=== PATIENT | female | born 1980 | race Caucasian/White ===

== ENCOUNTER 2019-06-11 14:15 | Emergency (ER) | payer OTHER, SELFPAY ==
[2019-06-11 14:32] VITALS: BP 135/74; PULSE 90; RESP 16; TEMP 36.6; O2SAT 100
--- NOTE | 2019-06-11 14:36 | ED.URI ---
HPI - URI/Sore Throat General Chief Complaint: Upper Respiratory Infection Stated Complaint: cough/congestion/headache/ears clogged Time Seen by Provider: 06/11/19 14:36 Source: patient and RN notes reviewed History of Present Illness HPI Narrative: Patient is a 39-year-old female that presents to the urgent care with complaints of cough, congestion, bilateral ear pain and headache for 2 weeks. Patient states that she has also had an intermittent sore throat that started 2-1/2 weeks ago. Patient states that she has been taking 4 days of amoxicillin that she had leftover from another infection. Patient denies any fever, nausea, vomiting. No other acute complaints. No acute distress noted. Patient read the plan of care. Related Data Home Medications Medication Instructions Recorded Confirmed amlodipine 06/11/19 hydrocodone-ibuprofen tablet 06/11/19 losartan 06/11/19 ondansetron HCl 06/11/19 Allergies Allergy/AdvReac Type Severity Reaction Status Date / Time Sulfa (Sulfonamide Allergy Mild Other Verified 06/11/19 14:31 Antibiotics) Review of Systems Review of Systems: Narrative: CONSTITUTIONAL: Denies fever, chills, or sweats. EYES: Denies visual changes, redness, or discharge. ENT: Reports of congestion, sore throat, bilateral otalgia, rhinorrhea CARDIOVASCULAR: Denies chest pain, palpitations, or edema. RESPIRATORY: Reports of cough with intermittent dyspnea during coughing fits GASTROINTESTINAL: Denies abdominal pain, nausea, vomiting, or diarrhea. GENITOURINARY: Denies dysuria or hematuria. SKIN: Denies rash or itching. MUSCULOSKELETAL: Denies back pain, joint pain, or myalgia. NEUROLOGIC: Reports of intermittent headaches All other systems reviewed are negative, except as documented in HPI. PMFSH Comments At the time of my signature, I reviewed and agree with the nursing past medical, surgical, social, and family history. There is no relevant family history pertinent to the patient complaint. Exam Narrative: Exam Narrative: GENERAL: This is a well-nourished, well-developed patient, appears slightly fatigued HEAD: normocephalic, atraumatic. EYES: PERRL. Sclera clear/white. Vision is grossly intact. EARS: External ears normal, auditory canals clear and without drainage, TMs normal without perforation. Hearing grossly intact. NOSE: External nose normal with no obvious nasal discharge, mild bilateral erythemic nares with clear to yellow rhinorrhea THROAT: Mucous membranes moist, posterior pharynx clear. Mild postnasal drainage NECK: Neck supple, non-tender without lymphadenopathy CARDIOVASCULAR: Regular rate and rhythm without murmurs, gallops, or rubs. RESPIRATORY: Clear to auscultation. Breath sounds equal bilaterally. No wheezes, rales, or rhonchi. SKIN: warm, intact with no suspicious lesions or rash, good texture and turgor. NEURO: awake, alert, and oriented to person, place and time. There were no obvious focal neurologic abnormalities. EXTREMITIES: No clubbing, cyanosis, or edema. Course Vital Signs Vital signs: Vital Signs Temperature 97.9 F 06/11/19 14:32 Pulse Rate 90 06/11/19 14:32 Respiratory Rate 16 06/11/19 14:32 Blood Pressure 135/74 06/11/19 14:32 Pulse Oximetry 100 06/11/19 14:32 Temperature 97.9 F 06/11/19 14:32 Pulse Rate 90 06/11/19 14:32 Respiratory Rate 16 06/11/19 14:32 Blood Pressure 135/74 06/11/19 14:32 Pulse Oximetry 100 06/11/19 14:32 Reviewed MDM - URI/Sore Throat MDM Narrative Medical decision making narrative: Advised the patient to complete steroid regimen as prescribed. Use Claritin and Flonase as directed. Make sure to eat and drink with medication. Stop taking amoxicillin. Increase fluids and rest. Use humidifier at night. Use Tylenol/ibuprofen as needed for fever and body aches. Follow-up with PCP within 2 to 5 days if worsening symptoms or failure to improve. Differential Diagnosis Differential diagnosis: Likely upper re
== END 2019-06-11 15:01 | disposition home or self-care (01) ==
PROVIDERS: Emergency Provider Nurse Practitioner Family
DX: J02.9 Acute pharyngitis, unspecified (principal); I10 Essential (primary) hypertension
CPT/HCPCS: 99203; G0463

== ENCOUNTER 2023-01-27 16:34 | Emergency (ER) | payer OTHER, SELFPAY ==
[2023-01-27 16:47] VITALS: BP 142/76; PULSE 100; RESP 16; TEMP 36.4; O2SAT 100
--- NOTE | 2023-01-27 16:50 | ED.URI ---
HPI - URI/Sore Throat General Chief Complaint: Upper Respiratory Infection Stated Complaint: Sore Throat Time Seen by Provider: 01/27/23 16:53 Source: patient and RN notes reviewed Mode of arrival: ambulatory Limitations: no limitations History of Present Illness HPI Narrative: 42-year-old female presents with concern for cough, sore throat, nasal congestion, postnasal drainage. She reports her son was diagnosed with strep throat recently. She denies fever, aches, chills, sweats. She has not taken any medications for her symptoms. MD elicited complaint: cough and sore throat Related Data Home Medications Medication Instructions Recorded Confirmed losartan 100 mg tablet 100 mg PO DAILY 06/11/19 01/27/23 alprazolam 0.5 mg tablet 0.25 mg PO PRN PRN Anxiety 01/27/23 01/27/23 amlodipine 10 mg tablet 10 mg PO DAILY 01/27/23 01/27/23 hydrochlorothiazide 12.5 mg capsule 12.5 mg PO DAILY 01/27/23 01/27/23 norethindrone (contraceptive) 0.35 0.35 mg PO DAILY 01/27/23 01/27/23 mg tablet Allergies Allergy/AdvReac Type Severity Reaction Status Date / Time Sulfa (Sulfonamide Allergy Mild Other Verified 01/27/23 16:46 Antibiotics) Review of Systems Review of Systems: CONSTITUTIONAL: Denies malaise, chills, sweats, or fever. EYES: Denies visual changes, redness, or discharge. ENT: Reports rhinorrhea, congestion, and sore throat. CARDIOVASCULAR: Denies chest pain, palpitations, or edema. RESPIRATORY: Reports cough. Denies dyspnea. GASTROINTESTINAL: Denies abdominal pain, nausea, vomiting, diarrhea SKIN: Denies rash or itching. MUSCULOSKELETAL: Denies myalgia. NEUROLOGIC: Denies headache. All systems reviewed & are unremarkable except as noted in HPI and below PMFSH Comments At time of signature, agree with nursing past medical, surgical, social and family history. There is no relevant family history pertinent to the presenting complaint Exam Narrative: GENERAL: Well-appearing, well-nourished, and in no acute distress. HEAD: Normocephalic EYES: PERRLA, conjunctivae clear ENT: Nares clear, turbinates edematous and erythematous. Mucous membranes moist. TM pearly montgomery with sharp light reflex bilaterally; no tragal tenderness. Oropharynx not erythematous without lesions. Tonsils not enlarged and without exudate, no drooling, no hoarseness, no trismus, uvula midline. NECK: Supple. No lymphadenopathy CHEST: Clear to auscultation, breath sounds equal. No wheezing, rhonchi, rales, or stridor. No respiratory distress, speaks in full sentences. HEART: Regular rate and rhythm. No murmur heard. SKIN: Warm, dry, no rash. NEURO: Alert and oriented x3. PSYCH: Normal mood and affect Course Course Emergency Course: Patient is aware of diagnosis, understands and agrees to treatment plan. Anticipatory guidance given. Patient agrees to follow-up as directed and is aware of reasons to seek care at the emergency department. Portions of this record may have been created with voice recognition software Level of Care: Express Care Visit Vital Signs Vital signs: Vital Signs Temperature 97.6 F 01/27/23 16:47 Pulse Rate 100 01/27/23 16:47 Respiratory Rate 16 01/27/23 16:47 Blood Pressure 142/76 H 01/27/23 16:47 Pulse Oximetry 100 01/27/23 16:47 Temperature 97.6 F 01/27/23 16:47 Pulse Rate 100 01/27/23 16:47 Respiratory Rate 16 01/27/23 16:47 Blood Pressure 142/76 H 01/27/23 16:47 Pulse Oximetry 100 01/27/23 16:47 Reviewed. MDM - URI/Sore Throat MDM Narrative Medical decision making narrative: Differential diagnosis considered: Aaron virus, strep pharyngitis, allergic rhinitis, upper respiratory tract infection, sinusitis, rhinosinusitis, nasopharyngitis. viral pharyngitis, otitis media, otitis externa, pneumonia, bronchitis, viral cough syndrome, viral syndrome, and influenza. Exam findings show no acute concerns or changes; patient is non-toxic appearing and is in no distress. Patient
[2023-01-27 16:57] VITALS: BP 142/76; PULSE 100; RESP 16; TEMP 36.4; O2SAT 100
== END 2023-01-27 17:05 | disposition home or self-care (01) ==
PROVIDERS: Emergency Provider Nurse Practitioner
DX: J06.9 Acute upper respiratory infection, unspecified (principal); I10 Essential (primary) hypertension; E03.9 Hypothyroidism, unspecified
CPT/HCPCS: 87081; 87880; 99203; G0463

== ENCOUNTER 2023-05-24 13:33 | Emergency (ER) | payer OTHER, SELFPAY ==
[2023-05-24 13:46] VITALS: BP 169/90; PULSE 95; RESP 16; TEMP 36.7; O2SAT 100
--- NOTE | 2023-05-24 14:05 | ED.URI ---
HPI - URI/Sore Throat General Chief Complaint: Upper Respiratory Infection Stated Complaint: Sore throat Time Seen by Provider: 05/24/23 13:56 Source: patient and RN notes reviewed Mode of arrival: ambulatory Limitations: no limitations History of Present Illness HPI Narrative: Patient presents today complaining of sore throat and headache that was present when she woke up this morning. She has tried no medication for symptoms prior to arrival. Son was diagnosed with strep yesterday. Currently rates her pain 04/07. Related Data Home Medications Medication Instructions Recorded Confirmed losartan 100 mg tablet 100 mg PO DAILY 06/11/19 05/24/23 alprazolam 0.5 mg tablet 0.25 mg PO PRN PRN Anxiety 01/27/23 05/24/23 amlodipine 10 mg tablet 10 mg PO DAILY 01/27/23 05/24/23 hydrochlorothiazide 12.5 mg capsule 12.5 mg PO DAILY 01/27/23 05/24/23 norethindrone (contraceptive) 0.35 0.35 mg PO DAILY 01/27/23 05/24/23 mg tablet Allergies Allergy/AdvReac Type Severity Reaction Status Date / Time Sulfa (Sulfonamide Allergy Mild Other Verified 05/24/23 13:39 Antibiotics) Review of Systems Review of Systems: CONSTITUTIONAL: Denies body aches, fever, chills, or sweats. EYES: Denies visual changes, redness, or discharge. ENT: Denies rhinorrhea, congestion, or otalgia.+ sore throat CARDIOVASCULAR: Denies chest pain, palpitations, or edema. RESPIRATORY: Denies cough or dyspnea. GASTROINTESTINAL: Denies abdominal pain, nausea, vomiting, or diarrhea. GENITOURINARY: Denies dysuria or hematuria. SKIN: Denies rash, itching, or wounds. MUSCULOSKELETAL: Denies back pain, joint pain, or myalgia. NEUROLOGIC: Denies numbness, tingling, or weakness.+ headache PSYCH: Denies depression or anxiety. PMFSH Comments At time of signature, I have reviewed and agree with nursing past medical, surgical, social and family history unless otherwise noted. Please see nursing chart for further information. There is no relevant family history pertinent to the presenting complaint Exam Narrative: GENERAL: Mildly ill-appearing, well-nourished, and in no acute distress. HEAD: Normocephalic, atraumatic. EYES: EOMI. No redness or drainage. Conjunctivae normal. ENT: Mucous membranes pink and moist. Nares clear. No rhinorrhea. TMs normal bilaterally. Throat erythematous and mildly edematous without exudate. Uvula midline. NECK: Normal AROM. Supple. No lymphadenopathy. CHEST: No respiratory distress. Clear to auscultation. HEART: Regular rate and rhythm. No murmur appreciated. EXTREMITIES: Normal range of motion. No edema. SKIN: Warm, dry, no rash. Capillary refill normal. Normal skin turgor. NEURO: No focal deficits. Alert and oriented x3. Gait steady. PSYCH: Normal affect. No signs of depression or anxiety. Course Course Level of Care: Express Care Visit Vital Signs Vital signs: Vital Signs Temperature 98.0 F 05/24/23 13:46 Pulse Rate 95 05/24/23 13:46 Respiratory Rate 16 05/24/23 13:46 Blood Pressure 169/90 H 05/24/23 13:46 Pulse Oximetry 100 05/24/23 13:46 Oxygen Delivery Room Air 05/24/23 13:46 Temperature 98.0 F 05/24/23 13:46 Pulse Rate 95 05/24/23 13:46 Respiratory Rate 16 05/24/23 13:46 Blood Pressure 169/90 H 05/24/23 13:46 Pulse Oximetry 100 05/24/23 13:46 Oxygen Delivery Room Air 05/24/23 13:46 Reviewed MDM - URI/Sore Throat MDM Narrative Medical decision making narrative: Rapid strep negative. Culture pending. Symptoms likely viral. Discussed [id number] medication use and duration of illness. Anticipatory guidance given. Differential Diagnosis Differential diagnosis: Likely upper respiratory infection, pharyngitis and other (Strep throat) Lab Data Attestation: I reviewed the patient's lab results. Labs: Strep Screen Presumptive Negative *(Reference Range: Negative)* Critical Care Time Cr
== END 2023-05-24 14:11 | disposition home or self-care (01) ==
PROVIDERS: Emergency Provider Nurse Practitioner
DX: J02.0 Streptococcal pharyngitis (principal); B95.0 Streptococcus, group A, as the cause of diseases classified elsewhere; I10 Essential (primary) hypertension; E03.9 Hypothyroidism, unspecified
CPT/HCPCS: 87081; 87880; 99213; G0463

== ENCOUNTER 2024-03-27 15:54 | Emergency (ER) | payer OTHER, SELFPAY ==
[2024-03-27 16:01] VITALS: BP 166/89; PULSE 99; RESP 18; TEMP 37.3; O2SAT 100
[2024-03-27 16:15] LABS: EDSTREPNEGPOS1 Negative (Negative)
--- NOTE | 2024-03-27 16:57 | ED_ITS ---
HPI - URI/Sore Throat General Chief Complaint: Upper Respiratory Infection Stated Complaint: poss strep throat Time Seen by Provider: 03/27/24 16:40 Source: patient, RN notes reviewed and old records reviewed Mode of arrival: ambulatory Limitations: no limitations History of Present Illness HPI Narrative: 44 year old female presents to [facility] care with complaints of one week duration of sore throat, nasal congestion with yellow-green nasal drainage. Patient reports that she took 2 days worth of Amoxicillin last week.Patient reports that she has sinus pressure and some frontal headache discomfort, denies any known fevers, chills or sweats or any body aches. MD elicited complaint: sore throat, rhinorrhea and nasal congestion Pertinent past history: other (vapes) Onset (ago): week(s) (1) Consistency: constant Severity: moderate Able to tolerate fluids by mouth: Yes Treatments prior to arrival: other (took 2 days of left over Amoxicillin) Related Data Home Medications ?Medication ?Instructions ?Recorded ?Confirmed ?Last Taken ?Type losartan 100 mg tablet 100 mg PO DAILY 06/11/19 05/24/23 Unknown History amlodipine 10 mg tablet 10 mg PO DAILY 01/27/23 05/24/23 Unknown History hydrochlorothiazide 12.5 mg capsule 12.5 mg PO DAILY 01/27/23 05/24/23 Unknown History norethindrone (contraceptive) 0.35 0.35 mg PO DAILY 01/27/23 05/24/23 Unknown History mg tablet Allergies Allergy/AdvReac Type Severity Reaction Status Date / Time Sulfa (Sulfonamide Allergy Mild Other Verified 03/27/24 16:08 Antibiotics) Review of Systems Review of Systems: CONSTITUTIONAL: Reports malaise, no chills, sweats, or known fever. EYES: Denies visual changes, redness, or discharge. ENT: Reports rhinorrhea, congestion, sinus pain,no otalgia and positive for sore throat. CARDIOVASCULAR: Denies chest pain, palpitations, or edema. RESPIRATORY: Reports no cough.? Denies dyspnea. GASTROINTESTINAL: Denies abdominal pain, nausea, vomiting, diarrhea SKIN: Denies rash or itching. MUSCULOSKELETAL: Denies myalgia. NEUROLOGIC: frontal headache. All systems reviewed & are unremarkable except as noted in HPI and below PMFSH Past Medical History Medical History (Updated 03/31/24 @ 07:25 by Natalie cMmanus NP) Chronic back pain Ectopic required surgery Hx of migraines Hypertension Social History Social History (Updated 03/27/24 @ 17:00 by Natalie Mcmanus NP) Smoking status: Current every day smoker Tobacco type: e-cigarettes/vaping Comments At time of signature, agree with nursing past medical, surgical, social and family history. There is no relevant family history pertinent to the presenting complaint Exam Narrative: GENERAL: Well-appearing, well-nourished, and in no acute distress. HEAD: Normocephalic EYES: PERRLA, conjunctivae clear ENT: Nares clear, turbinates edematous and erythematous, clear discharge. Mucous membranes moist. TM pearly montgomery with dull light reflex bilaterally; no tragal tenderness. Oropharynx erythematous without lesions. Tonsils red enlarged and throat without exudate, no drooling, no hoarseness, no trismus, uvula midline.post nasal discharge NECK: Supple. No lymphadenopathy CHEST: Clear to auscultation, breath sounds equal. No wheezing, rhonchi, rales, or stridor. No respiratory distress, speaks in full sentences.no cough noted SAO2 100% on room air HEART: Regular rate and rhythm. No murmur heard. SKIN: Warm, dry, no rash. NEURO: Alert and oriented x3. PSYCH: Normal mood and affect Course Course Emergency Course: Patient is aware of diagnosis, understands and agrees to treatment plan.? Anticipatory guidance given.? Patient agrees to follow-up as directed and is aware of reasons to seek care at the emergency department. Portions of this record may have been created with voice recognition software Level of Care: Express Care Visit Vital Signs Vital signs: Vital Signs Temperature 37.3 C 03/27/24 16:01 Pulse Rate 99 03/27/24 16:01 Respiratory Rate 18 03/27/24 16:01 Blood Pressure 166/89 H 03/27/24 16:01 Pulse Oximetry 100 03/27/24 16:01 Oxygen Delivery Room Air 03/27/24 16:01 Temperature 37.3 C 03/27/24 16:01 Pulse Rate 99 03/27/24 16:01 Respiratory Rate 18 03/27/24 16:01 Blood Pressure 166/89 H 03/27/24 16:01 Pulse Oximetry 100 03/27/24 16:01 Oxygen Delivery Room Air 03/27/24 16:01 Reviewed MDM - URI/Sore Throat MDM Narrative Medical decision making narrative: Differential diagnosis considered: Aaron virus, strep pharyngitis, allergic rhinitis, upper respiratory tract infection, sinusitis, rhinosinusitis, nasopharyngitis. viral pharyngitis, otitis media, otitis externa, pneumonia, bronchitis, viral cough syndrome, viral syndrome, and influenza.? Exam findings show no acute concerns or changes; patient is non-toxic appearing and is in no distress.? Patient is appropriate for outpatient treatment and follow-up. Differential Diagnosis Differential diagnosis: Likely upper respiratory infection, sinusitis, viral infection, pharyngitis and other (strep pharyngitis, acute pharyngitis) Medical Records Attestation: I reviewed the patient's medical records. Lab Data Attestation: I reviewed the patient's lab results. Lab results narrative: strep screen negative, culture sent Labs: Lab Results 03/27/24 Range/Units 16:13 POC Grp A Strep Screen Negative (Negative) Critical Care Time Critical Care Time Critical Care Time: No Discharge Plan Discharge Clinical Impression: Acute pharyngitis Qualifiers: Pharyngitis/tonsillitis etiology: unspecified etiology Qualified Code(s): J02.9 - Acute pharyngitis, unspecified Patient Disposition: Home, Self-Care Condition: Stable Instructions: Pharyngitis (ED) Additional Instructions: . Take the entire course of antibiotics. Throw away your current toothbrush and begin using a new toothbrush in 48 hours in order to prevent re-infection. Sanitize all reusable water bottles Zyrtec Claritin or Silvia daily . Do not share items with others. Salt water gargles may alleviate some of the throat discomfort. You can take Tylenol or ibuprofen per the package instructions for pain/fever. Medrol Dosepak take as prescribed If your symptoms persist, change or worsen significantly before you can contact your personal physician then please, without delay, go to the emergency department for further evaluation. Follow-up with PCP in 7-10 days or sooner if needed Follow up with PCP soon in regards to your blood pressure which is elevated above threshold for referral. Blood pressure above 120/80 may indicate pre- hypertension. Patient Language: Estonian Prescriptions: New amoxicillin 500 mg capsule 500 mg PO Q8H Qty: 30 0RF methylprednisolone [Medrol (Xavier)] 4 mg tablets,dose pack See Rx Instructions .ROUTE .COMPLEX Qty: 21 0RF Rx Instructions: orally per package directions No Action losartan 100 mg tablet 100 mg PO DAILY amlodipine 10 mg tablet 10 mg PO DAILY hydrochlorothiazide 12.5 mg capsule 12.5 mg PO DAILY norethindrone (contraceptive) 0.35 mg tablet 0.35 mg PO DAILY Follow-up/Referrals: Tanya,Cynthia Newby MD [Primary Care Provider] - Time of Disposition: 17:04 Quality [place] Coma Scale Eyes: Open Verbal: Oriented and Alert Motor: Follows Commands [place] Coma Total Score: 15
== END 2024-03-27 17:08 | disposition home or self-care (01) ==
PROVIDERS: Emergency Provider Registered Nurse; PCP Internal Medicine
DX: J02.9 Acute pharyngitis, unspecified (principal); F17.290 Nicotine dependence, other tobacco product, uncomplicated; I10 Essential (primary) hypertension
CPT/HCPCS: 87081; 87880; 99213; G0463

== ENCOUNTER 2024-05-27 22:57 | Emergency (ER) | payer OTHER, SELFPAY ==
[2024-05-27 22:59] VITALS: BP 172/82; PULSE 100; RESP 17; TEMP 36.3; O2SAT 100
[2024-05-28 00:28] VITALS: BP 145/95; PULSE 83; RESP 14; O2SAT 98
--- NOTE | 2024-05-28 01:46 | ED.GENADULT ---
HPI - General Adult General Chief complaint: Upper Respiratory Infection Stated complaint: thick mucous since decemeber Time Seen by Provider: 05/28/24 01:37 History of Present Illness HPI narrative: Patient is a 44-year-old female who presents emergency department this evening concerned of a sinus infection. Patient states that a few weeks ago she was treated for a sinus infection with amoxicillin for 10 days and her symptoms did improve. Patient states that within the last couple of days she has noticed that her symptoms are back again, stating that she has a lot of nasal mucus and some postnasal drip, denies any cough or URI symptoms. Denies any fevers or chills at home. Patient is here requesting another course of antibiotics. No additional symptoms or concerns at this time. Related Data Home Medications ?Medication ?Instructions ?Recorded ?Confirmed ?Last Taken ?Type losartan 100 mg tablet 100 mg PO DAILY 06/11/19 05/24/23 Unknown History amlodipine 10 mg tablet 10 mg PO DAILY 01/27/23 05/24/23 Unknown History hydrochlorothiazide 12.5 mg capsule 12.5 mg PO DAILY 01/27/23 05/24/23 Unknown History norethindrone (contraceptive) 0.35 0.35 mg PO DAILY 01/27/23 05/24/23 Unknown History mg tablet Allergies Allergy/AdvReac Type Severity Reaction Status Date / Time Sulfa (Sulfonamide Allergy Mild Other Verified 05/27/24 23:05 Antibiotics) Review of Systems Review of Systems: All systems are reviewed and are negative unless stated otherwise in the HPI. [facility] Past Medical History Medical History Chronic back pain Ectopic required surgery Hx of migraines Hypertension Social History Social History Smoking status: Current every day smoker Tobacco type: e-cigarettes/vaping Exam Narrative: General: Alert, awake, afebrile, in no acute distress. HEENT: PERRL, no rhinorrhea, no post nasal drip, oropharynx clear, clear tympanic membranes bilaterally. Neck: Trachea midline, no JVD, no lymphadenopathy. Cardiovascular: Regular rate and rhythm, no murmurs, rubs or gallops, no peripheral edema. Respiratory: Clear to auscultation bilaterally, no tachypnea, no wheezing, no rhonchi, no rubs, no respiratory distress. Abdomen: Soft, nontender, nondistended, no rebound, no guarding, no peritoneal signs. Musculoskeletal: No joint swelling or deformity, normal muscle tone. Skin: No rashes or petechia, no signs of infection. Psychiatric: Alert and oriented, normal behavior and judgment for situation. Neurological: Alert and oriented to person, place, and time. Follows all commands. No focal deficits, speech is clear and fluent. Course Vital Signs Vital signs: Vital Signs Temperature 97.4 F L 05/27/24 22:59 Pulse Rate 100 05/27/24 22:59 Respiratory Rate 17 05/27/24 22:59 Blood Pressure 172/82 H 05/27/24 22:59 Pulse Oximetry 100 05/27/24 22:59 Oxygen Delivery Room Air 05/27/24 22:59 Temperature 97.4 F L 05/27/24 22:59 Pulse Rate 83 05/28/24 00:28 Respiratory Rate 14 05/28/24 00:28 Blood Pressure 145/95 H 05/28/24 00:28 Pulse Oximetry 98 05/28/24 00:28 Oxygen Delivery Room Air 05/27/24 22:59 Medical Decision Making MDM Narrative Medical decision making narrative: The patient was evaluated by myself in the emergency department. History is obtained from patient who is an independent historian and physical exam was performed. External medical records were reviewed at this time. Patient was administered her 1st dose of Augmentin in the emergency department and informed the script will be sent to her pharmacy to take as prescribed. Differential diagnosis considerations include acute viral syndrome, sinusitis, otitis media. Comorbidities impacting this visit include none. I have evaluated and discussed social determinants of health with the patient that could potentially impact subsequent diagnosis and treatment plans. On repeat assessment of the patient, reevaluation revealed that the patient is doing well and is in no acute distress. Patient symptoms have remained stable since she arrived to our emergency department. Repeat vital signs were all reviewed and noted to be stable. Differential diagnosis and treatment plan were discussed with the patient at bedside. Patient agrees with discussion and after shared medical decision making agrees with discharge. All questions were answered to the patient's satisfaction. Patient will follow up with her PCP in 3-5 days. Patient was provided with strict return precautions and instructed to return to the emergency department if any new or worsening symptoms develop. The patient was discharged in stable condition. Vital Signs Vital Signs: Vital Signs Temperature 97.4 F L 05/27/24 22:59 Pulse Rate 100 05/27/24 22:59 Respiratory Rate 17 05/27/24 22:59 Blood Pressure 172/82 H 05/27/24 22:59 Pulse Oximetry 100 05/27/24 22:59 Oxygen Delivery Room Air 05/27/24 22:59 Temperature 97.4 F L 05/27/24 22:59 Pulse Rate 83 05/28/24 00:28 Respiratory Rate 14 05/28/24 00:28 Blood Pressure 145/95 H 05/28/24 00:28 Pulse Oximetry 98 05/28/24 00:28 Oxygen Delivery Room Air 05/27/24 22:59 Discharge Plan Discharge Clinical Impression: Sinusitis Patient Disposition: Home, Self-Care Condition: Stable Instructions: Antibiotic Form, Sinusitis (ED) Additional Instructions: Please follow-up with your family doctor within the next 3-5 days. Take the prescribed antibiotic as instructed. Return to the ED if any new or worsening symptoms develop. Patient Language: Eritrean Prescriptions: New amoxicillin-pot clavulanate 875-125 mg tablet 1 tablet PO Q12H 10 Days Qty: 20 0RF No Action amoxicillin 500 mg capsule 500 mg PO Q8H Qty: 30 0RF methylprednisolone [Medrol (Xavier)] 4 mg tablets,dose pack See Rx Instructions .ROUTE .COMPLEX Qty: 21 0RF Rx Instructions: orally per package directions losartan 100 mg tablet 100 mg PO DAILY amlodipine 10 mg tablet 10 mg PO DAILY hydrochlorothiazide 12.5 mg capsule 12.5 mg PO DAILY norethindrone (contraceptive) 0.35 mg tablet 0.35 mg PO DAILY Follow-up/Referrals: Tanya,Cynthia Newby MD [Primary Care Provider] - 3 Days Time of Disposition: 01:46
[2024-05-28 01:51] VITALS: BP 148/99; PULSE 78; RESP 17; O2SAT 98
[2024-05-28] MEDS: AMOXICILLIN/CLAVULANATE K 875-125 MG TAB 1 TABLET PO (01:51)
[2024-05-28 01:57] VITALS: O2SAT 98
== END 2024-05-28 01:59 | disposition home or self-care (01) ==
PROVIDERS: Emergency Provider Emergency Medicine; PCP Internal Medicine
DX: J32.9 Chronic sinusitis, unspecified (principal); I10 Essential (primary) hypertension; F17.290 Nicotine dependence, other tobacco product, uncomplicated; Z79.899 Other long term (current) drug therapy
CPT/HCPCS: 99283; A9270

== ENCOUNTER 2024-08-17 15:50 | Emergency (ER) | payer OTHER, SELFPAY ==
--- OUTSIDE RECORDS SUMMARY | 2024-08-17 15:52 | XMS_ITS | Encounter Summary ---
Author Organization [facility] Address [address] [place] [address] Care Team Providers Care Rug Dry Room Attendant Name Role Phone Cynthia Martínez MD Primary Care Provider [phone] Encounter Details Date Type Department Care Team (Late Contact Info) Description 12/21/2022 Refill [facility] [employer] [place] [address] [place] [address] Arabella Henderson MD [address] [place] [phone] Social History Tobacco Use Types Packs/Day Years Used Date Smoking Tobacco: Former Smokeless Tobacco: Never Alcohol Use Standard Drinks/Week Comments Never 0 (1 standard drink = 0.6 oz pur e alcohol) Comments No Sex and Gender Information Value Date Recorded Sex Assigned at Not on file Legal Sex Female 1:48 PM CDT Gender Identity Not on file Sexual Orientation Not on file documented as of this encounter Plan of Treatment Upcoming Encounters Date Type Department Care Team (Late Contact Info) Description 10/10/2024 2:30 PM CDT Office Visit [facility] [employer] [place] [address] [place] [address] Cynthia Martínez MD [address] [place] [address] documented as of this encounter Visit Diagnoses Not on filedocumented in this encounter Additional Health Concerns Assessment Noted Time PHQ-9 Depression Total Score: 1 03/03/20 22 3:00 PM ADJUNCT PSYCHOLOGY PROFESSOR documented as of this encounter Care Teams Rug Dry Room Attendant Relationship Specialty Start Date End Date Cynthia Martínez MD [address] [place] [phone] PCP - General Internal Medicine 08/19/23 documented as of this encounter
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
--- OUTSIDE RECORDS SUMMARY | 2024-08-17 15:52 | XMS_ITS | Clinical Summary ---
Author Organization [facility] Address [address] [place] [phone] Phone Care Team Providers Care Retail Sales Consultant Name Role Phone Provider, None Primary Care Provider Unavailabl e Social History Tobacco Use Types Packs/Day Years Used Date Smoking Tobacco: Never Assessed Comments Unknown Sex and Gender Information Value Date Recorded Sex Assigned at Not on file Legal Sex Female 2:35 PM CDT Gender Identity Not on file Sexual Orientation Not on file Plan of Treatment Health Maintenance Due Date Last Done Comments Hepatitis C Virus (HCV) Screening 1978 TdaP Immunization 1978 Hepatitis B Immunization (1 of 3 - 19+ 3-dose series) 1997 Colonoscopy 2023 Colorectal Cancer Screening 2023 Influenza Immunization (#1) 2023 SARS-COV-2 Immunization ( season) 2023 01/31/2021, 01/03/2021 Respiratory Syncytial Virus (RSV) Immunization (Adult) (1 - 1-dose 75+ series) 2053 Meningococcal Immunization (ACWY) Aged Out No longer eligible b ased on patient's age to complete this topic Pneumococcal Immunization Combined Aged Out No longer eligible b ased on patient's age to complete this topic Rotavirus Immunization Aged Out No lo nger eligible based on patient's age to complete this topic Insurance [facility] Care Teams Retail Sales Consultant Relationship Specialty Start Date End Date Provider, None [place] PCP - General 01/06/21
--- OUTSIDE RECORDS SUMMARY | 2024-08-17 15:52 | XMS_ITS | Encounter Summary ---
Author Organization [facility] Address [address] [place] [address] Care Team Providers Care Nuclear Medicine Physician Name Role Phone Surendra Murphy MD Primary Care Provider [phone] Arabella Henderson MD Primary Care Provider [phone] Judit Donaldson MD Unavailable [phone] Encounter Details Date Type Department Care Team (Late st Contact Info) Description 11/20/2015 [facility] Outpatient Visit EXTERNAL NON-[facility] DEPT Unknown, Provider Social History Tobacco Use Types Packs/Day Years Used Date Smoking Tobacco: Every Day Cigarettes 1 18 Smokeless Tobacco: Never Alcohol Use Standard Drinks/Week Comments No 0 (1 standard drink = 0.6 oz pur e alcohol) Comments No Sex and Gender Information Value Date Recorded Sex Assigned at Not on file Legal Sex Female 8:33 AM SUPERVISOR CORRESPONDENCE SECTION Gender Identity Not on file Sexual Orientation Not on file documented as of this encounter Plan of Treatment Not on file documented as of this encounter Goals Goal Patient Goal Type Associated Problems Recent Progress Patient-Stated? Author Blood Pressure < 140/90 Blood Pressure 150/76(2024 4:51 PM SUPERVISOR CORRESPONDENCE SECTION) No Savanah Bush MA Note: Caring for [...] Where can I go for more information? [place] [employer] National Center: http://www.americanheart.org 1. In the top header, click C onditions . 2. In the top header, click h igh blood pressure. 3. For a printable blood pressure tracker, scroll toward the bottom of the page to Related Tools, and click H BP Trackers. 5-095-GPA-USA-1 or ( ) National Heart, Lung and Blood [place]: http://www.nhlbi.nih.gov/health/infoctr/index.htm Quit smoking / using tobacco Lifestyle No Savanah Bush, EDINSON Note: Where can I go for support and more information? There are many ways to quit smoking. Some may work better for you than others. Your caregiver can help you find the best plan to quit. Smokefree.gov Phone: 6-064-PMVU-NOW ( ) www.smokefree.gov [place] [employer] Phone: Phone: www.lung.org Instant Rewards [...] you to quit smoking. -Taken from www.smokefree.gov documented as of this encounter Visit Diagnoses Not on filedocumented in this encounter Care Teams Nuclear Medicine Physician Relationship Specialty Start Date End Date Surendra Murphy MD PCP - General Family Medicine 11/05/11 03/29/21 Arabella Henderson MD [address] [place] [address] PCP - General Family Medicine 09/11/21 Judit Donaldson MD [address] [place] [address] Junior Database Administrator Obstetrics and Gynecology 09/12/21 documented as of this encounter
--- OUTSIDE RECORDS SUMMARY | 2024-08-17 15:52 | XMS_ITS | Clinical Summary ---
Author Organization [facility] [place] Address [address] [address] Care Team Providers Care Securities Broker Name Role Phone Cynthia Martínez MD Primary Care Provider [phone] Allergies Active Allergy Reactions Criticality Noted Date Comments Sulfa (Sulfonamide Antibiotics) Nausea and Vomiting Low 05/20/2009 Stomach pain Tramadol Hives High 07/21/2022 Medications norethindrone, Contraceptive, 0.35 mg Tablet Take 0.35 mg by mouth daily. 10/08/19 22 Active ergocalciferol (VITAMIN D2) 50,000 unit capsuleIndicatio ns:Vitamin D deficiency Take 1 Capsule (50,000 Units) by mouth every 7 days. 12 Capsule 07/12/19 24 Active cyclobenzaprine (FLEXERIL) 10 mg tabletIndication s:Muscle spasms of neck Take 1 Tablet (10 mg) by mouth nightly as needed for Spasm. 90 Tablet 05/26/19 25 Active SUMAtriptan (Imitrex) 50 mg tabletIndication s:Migraine without aura and without status migrainosus, not intractable Take 1-2 Tablets (50-100 mg) by mouth every 2 hours as needed for Headaches. may repeat in 2 hours; max dose 200mg in 24 hours 9 Tablet 07/05/19 25 Active ondansetron (ZOFRAN ODT) 4 mg Tablet, Rapid Dissolve Take 1 Tablet (4 mg) by mouth every 8 hours as needed for Nausea/Emes is. Dissolve tablet on top of tongue, then swallow with saliva. 10 Tablet 07/05/19 25 Active amLODIPine (NORVASC) 10 mg tabletIndication s:Benign hypertension TAKE 1 TABLET(10 MG) BY MOUTH DAILY 90 Tablet 08/01/19 25 Active hydroCHLOROthiaz sp (MICROZIDE) 12.5 mg capsuleIndicatio ns:Benign hypertension Take 1 Capsule (12.5 mg) by mouth daily. 90 Capsule 08/03/19 25 Active losartan (COZAAR) 100 mg tabletIndication s:Benign hypertension Take 1 Tablet (100 mg) by mouth daily. 90 Tablet 08/03/19 25 Active ALPRAZolam (Xanax) 0.5 mg tabletIndication s:Anxiety state Take 1/2 to 1 tab daily as needed for severe anxiety. Use sparingly. No more than 6 tabs a month. 6 Tablet 08/03/19 25 Active amLODIPine (NORVASC) 10 mg tabletIndication s:Benign hypertension Take 1 Tablet (10 mg) by mouth daily. 90 Tablet 04/11/19 25 025 Discontinued hydroCHLOROthiaz sp (MICROZIDE) 12.5 mg capsuleIndicatio ns:Benign hypertension Take 1 Capsule (12.5 mg) by mouth daily. 90 Capsule 04/11/19 25 025 Discontinued(Re order) losartan (COZAAR) 100 mg tabletIndication s:Benign hypertension TAKE 1 TABLET(100 MG) BY MOUTH DAILY 90 Tablet 05/10/19 25 025 Discontinued(Re order) ALPRAZolam (Xanax) 0.5 mg tabletIndication s:Anxiety state Take 1/2 to 1 tab daily as needed for severe anxiety. Use sparingly. No more than 6 tabs a month. 6 Tablet 06/28/19 25 025 Discontinued(Re order) Active Problems Problem Noted Date Diagnosed Date Migraine without status migrainosus, not intract able 04/11/2024 Vitamin D insufficiency 07/26/2023 Prediabetes 07/26/2023 Proteinuria 07/26/2023 Mixed hyperlipidemia 07/26/2023 Abnormal CBC 07/26/2023 Benign hypertension 03/11/2022 Muscle spasms of neck 03/11/2022 DDD (degenerative disc disease), lumbar 01/31/20 21 Anxiety state 01/30/2021 Moderate episode of recurrent major depressive d isorder 01/30/2021 Encounters Date Type Department Care Team Description 08/15/2024 External Device Data STL ABSTRACTION Provider, Abstract 08/01/2024 Refill [facility] [employer] [facility] [address] [place] [phone] Cynthia Martínez MD Benign hypertension; Anxiety state 07/30/2024 Refill [facility] [address] [place] [phone] Cynthia Martínez MD Benign hypertension 07/11/2024 External Device Data STL ABSTRACTION Provider, Abstract 07/04/2024 Refill [facility] [employer] [facility] [address] [place] [phone] Cynthia Martínez MD Migraine without aura and without status migrainosus, not intractable 06/27/2024 Refill [facility] [employer] [facility] [address] [place] [phone] Cynthia Martínez MD Anxiety state 06/14/2024 External Device Data STL ABSTRACTION Provider, Abstract 06/06/2024 External Device Data [facility] ABSTRACTION Provider, Abstract 06/06/2024 External Device Data [facility] ABSTRACTION Provider, Abstract 06/03/2024 External Device Data ST[facility] ABSTRACTION Provider, Abstract 06/02/2024 External Device Data STL ABSTRACTION Provider, Abstract 05/31/2024 Refill [email or web address] [address] [place] [phone] Cynthia Martínez MD Anxiety state 05/30/2024 External Device Data STL ABSTRACTION Provider, Abstract 05/26/2024 Refill [email or web address] [address] [place] [phone] Cynthia Martínez MD Migraine without aura and without status migrainosus, not intractable 05/26/2024 Refill [facility] [email or web address] [address] [address] Mary Jensen, ANP Muscle spasms of neck 05/26/2024 Refill [facility] [employer] [address] [place] [address] Cynthia Martínez MD Anxiety state from Last 3 Months Immunizations Immunization Administration Dates Next Due (SPIKEVAX) (12 YRS UP PRIMAR Y SERIES) COVID-19 VACCINE - MRNA-1273(PF) 100 MCG/0.5 ML IM SUSP 01/03/2021 Hepatitis A Vaccine 06/23/2011 Family History Medical History Relation Name Comments Sudden Daughter 3 months old Diabetes Father Heart Disease Father Hypertension Father Kidney Disease Father Alcohol abuse Maternal Grandfather Liver Disease Maternal Grandfather Unknown Maternal Grandmother Diabetes Mother Hypertension Mother Lung Cancer Mother Other Mother Diabetes Paternal Grandfather Unknown Paternal Grandmother Diabetes Sister Hypertension Sister Other Sister No Known Problems Son Relation Name Status Comments Daughter Father (Age 63) complicati ons from dialysis ( secondary to DM) Maternal Grandfather Maternal Grandmother Mother Alive COPD Paternal Grandfather Paternal Grandmother Sister Alive seizure-seconda ry to MVA/head injury Son Alive Social History Tobacco Use Types Packs/Day Years Used Date Smoking Tobacco: Former Smokeless Tobacco: Never Tobacco Cessation:Counseling Given: Not Answered Comments:Pack /day x 30 -- Alcohol Use Standard Drinks/Week Comments Not Currently 0 (1 standard drink = 0.6 oz pur e alcohol) Comments No Sex and Gender Information Value Date Recorded Sex Assigned at Not on file Legal Sex Female 1:48 PM CDT Gender Identity Not on file Sexual Orientation Not on file Last Filed Vital Signs Vital Sign Reading Time Taken Comments Blood Pressure 130/78 04/11/2024 2:23 PM CAPSULE INSPECTOR Pulse 105 04/11/2024 2:23 PM CAPSULE INSPECTOR Temperature 36.7 C (98 F) 04/11/2024 2:23 PM CAPSULE INSPECTOR Respiratory Rate 18 04/11/2024 2:23 PM CAPSULE INSPECTOR Oxygen Saturation 97% 04/11/2024 2:23 PM CAPSULE INSPECTOR Inhaled Oxygen Concentration - - Weight 90.4 kg (199 lb 6.4 oz) 04/11/2024 2:23 P M CAPSULE INSPECTOR Height 167.6 cm (5' 6 ) 04/11/2024 2:23 PM CAPSULE INSPECTOR Body Mass Index 32.18 04/11/2024 2:23 PM CAPSULE INSPECTOR Plan of Treatment Upcoming Encounters Date Type Department Care Team (Late st Contact Info) Description 10/10/2024 2:30 PM CDT Office Visit [facility] [employer] [facility] [address] [place] [place] [address] Cynthia Martínez MD [email or web address] [address] Health Maintenance Due Date Last Done Comments DTAP/TDAP/TD VACCINES (1 - Tdap) 1997 HEPATITIS B VACCINES (1 of 3 - 19+ 3-dose series) 1997 HPV/Cotest (21-29) 1999 CERVICAL CANCER SCREENING 02/26/2008 HPV/Cotest (30-65) 02/26/2008 PAP SMEAR 02/26/2008 BREAST CANCER SCREENING 2018 COLORECTAL SCREENING 2023 Colorectal Cancer Screening 2023 FIT-DNA Q 3 years 2023 FIT/FOBT Q 1 year 2023 Flex Sig/CT Colonography Q 5 years 2023 COVID-19 Vaccine (2 - 2023-2 5 season) 2023 01/03/2021 Pre-Diabetes and Diabetes Screening 11/09/2026 11/10/2023, 07/08/2023, 01/29/2022 INFLUENZA VACCINE Completed 04/11/2024, 01/27/2022, 01/30/2021 Preventative Visit- Commercial Completed 04/11/2024, 02/11/2023 HPV VACCINES Aged Out No longer eligi ble based on patient's age to complete this topic Procedures Procedure Name Priority Date/Time Associated Diagnosis Comments HEMOGLOBIN A1C Routine 11/10/2023 8:18 AM CDT Prediabetes from Last 3 Months or Most Recently Relevant to Health Maintenance Results * HEMOGLOBIN A1C (11/10/2023 8:18 AM CDT) HEMOGLOBIN A1C 5.6 <5.7 % of total Hgb [email or web address] Comment: For the purpose of screening for the presence of diabetes: <5.7% Consistent with the absence of diabetes 5.7-6.4% Consistent with increased risk for diabetes (prediabetes) > or =6.5% Consistent with diabetes This assay result is consistent with a decreased risk of diabetes. Currently, no consensus exists regarding use of hemoglobin A1c for diagnosis of diabetes in children. According to [place] Diabetes Association (ADA) guidelines, hemoglobin A1c <7.0% represents optimal control in non- diabetic patients. Different metrics may apply to specific patient populations. Standards of Medical Care in Diabetes(ADA). ESTIMATED AVERAGE GLUCOSE (MG/DL) 114 mg/dL [employer] [facility] Boss ESTIMATED AVERAGE GLUCOSE (MMOL/L) 6.3 mmol/L [employer] k[facility] Boss Comment: This test was performed on the Jose henrry c503 platform. Effective 06/14/23, a change in test platforms from the Pascal Geometry Professor to the Jose henrry c503 may have shifted HbA1c results compared to historical results. Based on laboratory validation testing conducted at [facility] the Jose platform relative to the Pascal platform had an average increase in HbA1c value of < or = 0.3%. This difference is within accepted variability established by the National Glycohemoglobin Standardization Program. Note that not all individuals will have had a shift in their results and direct comparisons between historical and current results for testing conducted on different platforms is not recommended. Test Performed at: [email or web address] [place] [address] [address] [place] [phone] Butch [facility] Blood 11/10/2023 8:1 8 AM CDT 11/11/2023 1:29 AM CDT us Arabella Henderson MD CHEMISTRY ORDERABLES Final Re sult [facility] [phone] [email or web address] [place] [address] [address] [place] [phone] from Last 3 Months or Most Recently Relevant to Health Maintenance Insurance ALLEGIANCE OPEN ACCESS ALLEGIAN OPEN ACCESS Care Teams Securities Broker Relationship Specialty Start Date End Date Cynthia Martínez MD [address] [place] [phone] PCP - General Internal Medicine 08/19/23
--- OUTSIDE RECORDS SUMMARY | 2024-08-17 15:52 | XMS_ITS | Encounter Summary ---
Author Organization [facility] Address [address] [place] [address] Care Team Providers Care Semiconductor Wafers Etcher Stripper Name Role Phone Cynthia Martínez MD Primary Care Provider Encounter Details Date Type Department Care Team (Late Contact Info) Description 08/12/[address] [facility] [place] [address] [place] [address] Arabella Henderson MD [address] [place] [phone] Social History Tobacco Use Types Packs/Day [...] Description 10/10/2024 2:30 PM CDT Office [facility] [place] [address] Cynthia Martínez MD [address] [place] [address] documented as of this encounter Visit Diagnoses Not on filedocumented in this encounter Care Teams Semiconductor Wafers Etcher Stripper Relationship Specialty Start Date End Date Cynthia Martínez MD [address] [place] [phone] PCP - General Internal Medicine 08/19/23 documented as of this encounter
[2024-08-17 15:54] VITALS: BP 151/75; PULSE 97; RESP 20; TEMP 36.8; O2SAT 100
--- NOTE | 2024-08-17 16:04 | ED_ITS ---
HPI - Ear Problem General Chief complaint: Ear Stated complaint: ear pain Time Seen by Provider: 08/17/24 16:05 Source: patient, RN notes reviewed and old records reviewed Mode of arrival: ambulatory Limitations: no limitations History of Present Illness HPI Narrative: 44-year-old female who presents to [facility] with complaints of a 2 day history of bilateral ear pain with right of greatest intensity. Patient reports she has been taking ibuprofen for her symptoms. Patient reports that she had sinus infection about a month ago and states that she has runny nose with some mucous drainage in her throat with no complaints of throat pain. Patietn reports no acute cough or any dyspnea. MD Complaint: ear pain Location: bilateral Duration: intermittent Severity: moderate Discharge from ear: Reports no Treatment prior to arrival: oral analgesic (ibuprofen) Related Data Home Medications ?Medication ?Instructions ?Recorded ?Confirmed ?Last Taken ?Type losartan 100 mg tablet 100 mg PO DAILY 06/11/19 08/17/24 Unknown History amlodipine 10 mg tablet 10 mg PO DAILY 01/27/23 08/17/24 Unknown History hydrochlorothiazide 12.5 mg capsule 12.5 mg PO DAILY 01/27/23 08/17/24 Unknown History norethindrone (contraceptive) 0.35 0.35 mg PO DAILY 01/27/23 08/17/24 Unknown History mg tablet alprazolam 0.5 mg tablet mg 08/17/24 Unknown History sumatriptan succinate 50 mg tablet mg PO 08/17/24 Unknown History Allergies Allergy/AdvReac Type Severity Reaction Status Date / Time Sulfa (Sulfonamide Allergy Mild Other Verified 08/17/24 15:54 Antibiotics) Review of Systems Review of Systems: CONSTITUTIONAL: Reports malaise, chills, sweats, low grade temp 99.1F . EYES: Denies visual changes, redness, or discharge. ENT: Reports rhinorrhea, congestion, sinus pressure,bilateral otalgia and no sore throat. CARDIOVASCULAR: Denies chest pain, palpitations, or edema. RESPIRATORY: Reports no cough.? Denies dyspnea. GASTROINTESTINAL: Denies abdominal pain, nausea, vomiting, diarrhea SKIN: Denies rash or itching. MUSCULOSKELETAL: Denies myalgia. NEUROLOGIC: headache. All systems reviewed & are unremarkable except as noted in HPI and below PMFSH Past Medical History Medical History (Updated 08/17/24 @ 18:28 by Natalie Mcmanus NP) Gestational diabetes Chronic back pain Ectopic required surgery Hx of migraines Hypertension Social History Social History (Updated 08/17/24 @ 18:27 by Natalie Mcmanus NP) Smoking status: Current every day smoker Tobacco type: e-cigarettes/vaping Living arrangements: with family Gender identity (if verbalized by the patient): Female Comments At time of signature, agree with nursing past medical, surgical, social and family history. There is no relevant family history pertinent to the presenting complaint Exam Narrative: GENERAL: Well-appearing, well-nourished, and in no acute distress. HEAD: Normocephalic EYES: PERRLA, conjunctivae clear ENT: Nares clear, turbinates edematous and erythematous, clear discharge. Mucous membranes moist. TM pearly montgomery with dull light reflex bilaterally; no tragal tenderness. Oropharynx erythematous without lesions. Tonsils not enlarged and without exudate, no drooling, no hoarseness, no trismus, uvula midline. NECK: Supple. No lymphadenopathy CHEST: Clear to auscultation, breath sounds equal. No wheezing, rhonchi, rales, or stridor. No respiratory distress, speaks in full sentences.SAO2 100% on room air HEART: Regular rate and rhythm. No murmur heard. SKIN: Warm, dry, no rash. NEURO: Alert and oriented x3. PSYCH: Normal mood and affect Course Course Emergency Course: Patient is aware of diagnosis, understands and agrees to treatment plan.? Anticipatory guidance given.? Patient agrees to follow-up as directed and is aware of reasons to seek care at the emergency department. Portions of this record may have been created with voice recognition software Level of Care: Express Care Visit Vital Signs Vital signs: Vital Signs Temperature 36.8 C 08/17/24 15:54 Pulse Rate 97 08/17/24 15:54 Respiratory Rate 20 08/17/24 15:54 Blood Pressure 151/75 H 08/17/24 15:54 Pulse Oximetry 100 08/17/24 15:54 Oxygen Delivery Room Air 08/17/24 15:54 Temperature 36.8 C 08/17/24 15:54 Pulse Rate 97 08/17/24 15:54 Respiratory Rate 20 08/17/24 15:54 Blood Pressure 151/75 H 08/17/24 15:54 Pulse Oximetry 100 05/22/25 15:54 Oxygen Delivery Room Air 08/17/24 15:54 Reviewed Medical Decision Making Differential Diagnosis Differential Diagnosis: URI, otitis media, sinusitis, viral infection Medical Records Medical records reviewed: Yes I reviewed the external patient's medical records. Vital Signs Vital Signs: Vital Signs Temperature 36.8 C 08/17/24 15:54 Pulse Rate 97 08/17/24 15:54 Respiratory Rate 20 08/17/24 15:54 Blood Pressure 151/75 H 08/17/24 15:54 Pulse Oximetry 100 08/17/24 15:54 Oxygen Delivery Room Air 08/17/24 15:54 Temperature 36.8 C 08/17/24 15:54 Pulse Rate 97 08/17/24 15:54 Respiratory Rate 20 08/17/24 15:54 Blood Pressure 151/75 H 08/17/24 15:54 Pulse Oximetry 100 08/17/24 15:54 Oxygen Delivery Room Air 08/17/24 15:54 reviewed Critical Care Time Critical Care Time Critical Care Time: No Discharge Plan Discharge Clinical Impression: Otitis media, right Qualifiers: Otitis media type: serous Chronicity: acute Recurrence: non-recurrent Qualified Code(s): H65.01 - Acute serous otitis media, right ear Patient Disposition: Home Condition: Stable Instructions: Antibiotic Form, Ear Infection (ED) Additional Instructions: Increase fluids especially juices and water Auwc-ydp-cwchyfc cough and cold medicine of your choice for your symptoms Zyrtec Claritin or Silvia daily include Coricidin brand decongestant heat to the face 20-30 minutes 4-6 times a day for pain Salt water gargles, throat lozenges or throat sprays as desired Antibiotic as directed--finished the medication If your symptoms persist, change or worsen significantly before you can contact your personal physician then please, without delay, go to the emergency department for further evaluation. Follow-up with PCP in 7-10 days or sooner if needed Follow up with PCP soon in regards to your blood pressure which is elevated above threshold for referral. Blood pressure above 120/80 may indicate pre- hypertension. recommend taking probiotic while on this antibiotic Patient Language: Thai Prescriptions: New amoxicillin-pot clavulanate 875-125 mg tablet 1 tablet PO Q12H Qty: 20 0RF fluconazole 150 mg tablet 150 mg PO DAILY Qty: 2 0RF Rx Instructions: take one tab at onset of symptoms, may repeat X1 in 72 hours if needed, No Action sumatriptan succinate 50 mg tablet PO alprazolam 0.5 mg tablet losartan 100 mg tablet 100 mg PO DAILY amlodipine 10 mg tablet 10 mg PO DAILY hydrochlorothiazide 12.5 mg capsule 12.5 mg PO DAILY norethindrone (contraceptive) 0.35 mg tablet 0.35 mg PO DAILY Follow-up/Referrals: Tanya,Cynthia Newby MD [Primary Care Provider] - Stand Alone Forms: Work/School Release IP Time of Disposition: 16:21 Quality [place] Coma Scale Eyes: Open Verbal: Oriented and Alert Motor: Follows Commands Connie Coma Total Score: 15
== END 2024-08-17 16:27 | disposition home or self-care (01) ==
PROVIDERS: Emergency Provider Registered Nurse; PCP Internal Medicine
DX: H65.01 Acute serous otitis media, right ear (principal); F17.290 Nicotine dependence, other tobacco product, uncomplicated; I10 Essential (primary) hypertension
CPT/HCPCS: 99213; G0463